=== PATIENT | male | born 1955 | race Caucasian/White ===

== ENCOUNTER → 2024-05-12 18:27 | Outpatient (REF) | payer OTHER, SELFPAY | LOC: MRI 3T 18:27 | PROVIDERS: ATTENDING PHYSICIAN Specialist; FAMILY PHYSICIAN Family Medicine | DX: N40.1 Benign prostatic hyperplasia with lower urinary tract symptoms (principal) | CPT/HCPCS: 72197; A9575 ==

== ENCOUNTER 2024-08-16 12:20 | Outpatient (RCR) | payer OTHER, SELFPAY | END 2024-08-16 23:59 | disposition home or self-care (01) | LOC: RPT 12:20 | PROVIDERS: ATTENDING PHYSICIAN Urology; FAMILY PHYSICIAN Family Medicine | DX: D07.5 Carcinoma in situ of prostate (principal); Z73.6 Limitation of activities due to disability | CPT/HCPCS: 97161; 97530 ==

== ENCOUNTER 2024-08-19 06:09 | Day surgery (SDC) | payer OTHER, SELFPAY ==
[2024-08-16 14:22] VITALS: BMI 28.2
[2024-08-16 14:56] LABS: Hematocrit 43.6 % (39.0-52.0); Hemoglobin 15.2 g/dL (13.0-18.0); Mean Corp Hgb Conc. 34.9 g/dL (33.0-37.0); Mean Corpuscular Hgb 30.1 pg (27.0-31.0); Mean Corpuscular Volume 86.3 fL (80.0-94.0); Mean Platelet Volume 9.4 fL (7.4-10.4); Platelet Count 435 10^3/uL (130-400); Red Blood Cell Count 5.05 10^6/uL (4.70-6.10); Red Cell Dist. Width 12.5 % (11.5-14.5)
[2024-08-16 15:02] LABS: Urine Albumin Negative (Neg - Trace); Urine Bilirubin Negative (Negative); Urine Character Clear (Clear); Urine Color Yellow; Urine Glucose Negative (Negative); Urine Ketone Negative (Negative); Urine Leukocyte Negative (Negative); Urine Nitrite Negative (Negative); Urine Occult Blood Negative (Negative); Urine Urobilinogen Negative (Neg - 1+)
[2024-08-16 15:10] LABS: INR 1.03; PT 13.3 Sec (11.4-14.6)
[2024-08-16 15:11] LABS: Blood Urea Nitrogen 12 mg/dl (9-20); Calcium 9.7 mg/dl (8.4-10.2); Carbon Dioxide 28 mmol/L (22-30); Chloride 99 mmol/L (98-107); Estimated Creatinine Clearance 93 ml/min; Glucose 91 mg/dl (70-99); Potassium 4.4 mmol/L (3.5-5.1); Sodium 142 mmol/L (135-145); eGFR > 60.00
[2024-08-16 15:11] LABS: APTT 28.1 Sec (23.4-35.0)
[2024-08-19] VITALS (14 sets, daily range): BP systolic 122–146; BP diastolic 59–79; BMI 28.2
[2024-08-19] MEDS: NORMOSOL-R/PLASMALYTE-A 1000 IV (07:23)
--- NOTE | 2024-08-19 12:01 | W.IMMPOSTOP ---
Surgical Immed Post Op Note
-
Primary Surgeon: Peffer
Assisting Surgeon: none
Pre-op Diagnosis: Prostate cancer
Post-op Diagnosis: same
Procedure Performed: Robotic prostatectomy, pelvic lymph node dissection
Anesthesia Type: general
Specimen / Cultures: Prostate, lymph nodes, DVs, frozen sections
Estimated Blood Loss: 20cc
Complications: none
Operative Findings: negative frozen
[2024-08-19] MEDS: TORADOL 15 MG IV ×2 (13:06→18:35)
[2024-08-19] MEDS: ZOFRAN 4 MG IV (13:06)
[2024-08-19] MEDS: NSS 1000 IV ×2 (14:20→22:25)
--- NOTE | 2024-08-19 14:47 | PTCARENOTE ---
Received patient from PACU via bed around 1420 in stable condition. Patient oriented to room. Denies pain. Pike draining juan m colored urine. Lap sites to abdomen GUTIERREZ CDI. Call carpenter in reach.
[2024-08-19] MEDS: ORETIC PO (15:09)
[2024-08-19] MEDS: SENOKOT 17.2 MG PO ×2 (15:40→20:01)
[2024-08-19 17:13] LABS: Hematocrit 41.1 % (39.0-52.0); Hemoglobin 14.4 g/dL (13.0-18.0)
[2024-08-19] MEDS: NSS IV (17:22)
[2024-08-19 17:27] LABS: Blood Urea Nitrogen 19 mg/dl (9-20); Calcium 8.9 mg/dl (8.4-10.2); Carbon Dioxide 26 mmol/L (22-30); Chloride 99 mmol/L (98-107); Estimated Creatinine Clearance 93 ml/min; Glucose 136 mg/dl (70-99); Potassium 4.4 mmol/L (3.5-5.1); Sodium 137 mmol/L (135-145); eGFR > 60.00
[2024-08-19] MEDS: CRESTOR 5 MG PO (21:33)
[2024-08-20] MEDS: TORADOL 15 MG IV ×3 (00:11→12:30)
[2024-08-20] MEDS: NSS 1000 IV (05:58)
[2024-08-20 06:27] LABS: Hematocrit 36.7 % (39.0-52.0); Hemoglobin 12.6 g/dL (13.0-18.0); Mean Corp Hgb Conc. 34.3 g/dL (33.0-37.0); Mean Corpuscular Volume 90.4 fL (80.0-94.0); Mean Platelet Volume 9.2 fL (7.4-10.4); Platelet Count 309 10^3/uL (130-400); Red Blood Cell Count 4.06 10^6/uL (4.70-6.10); Red Cell Dist. Width 12.4 % (11.5-14.5); White Blood Cell Count 10.6 10^3/uL (4.8-10.8)
[2024-08-20 06:36] LABS: Blood Urea Nitrogen 15 mg/dl (9-20); Calcium 8.2 mg/dl (8.4-10.2); Carbon Dioxide 25 mmol/L (22-30); Chloride 105 mmol/L (98-107); Estimated Creatinine Clearance 93 ml/min; Glucose 103 mg/dl (70-99); Potassium 4.2 mmol/L (3.5-5.1); Sodium 139 mmol/L (135-145); eGFR > 60.00
[2024-08-20 07:48] VITALS: BP 130/64
[2024-08-20] MEDS: NORVASC 2.5 MG PO (07:50)
[2024-08-20] MEDS: SENOKOT 17.2 MG PO (07:50)
[2024-08-20] MEDS: ORETIC 12.5 MG PO (07:51)
--- NOTE | 2024-08-20 09:59 | W.PN.URO.CBU ---
Today's Communication / Plan
-
Discharge
Assessment / Plan
-
69M POD 1 s/p robotic prostatectomy
- OOB
- Regular diet
- PO pain control
Discharge home with bah
Follow up 10 days
Diagnosis
-
Date of Service: August 20, 2024
-
Patient Diagnosis:
prostate cancer
Post Op Day:
Subjective
-
pain controlled
tolerating diet
some ambulation
Objective
-
Vital Signs
Temp Pulse Resp BP Pulse Ox
97.6 F 64 16 130/64 97
08/20/24 07:48 08/20/24 07:50 08/20/24 07:48 08/20/24 07:50 08/20/24 07:48
Intake and Output
08/19/24 08/20/24 08/21/24
06:59 06:59 06:59
Intake Total 2680 / 2680
Output Total 178 / 178
Balance 900 / 900
Intake:
Oral fluids 480 / 480
IV fluids (Total) 2200 / 2200
Normosol 200 / 200
IV piggybacks 0 / 0
Output:
Urine, Bah 1779 / 1779
Laboratory Results
08/20/24 05:29
08/20/24 05:29
Physical Exam
-
General - well developed, well nourished, no acute distress
Chest - clear bilaterally
Abdomen - soft, non-tender
Bah clear urine
Skin - warm & dry with no rash
Neuro - AOx3, no motor deficits
Incision - clean, dry
--- NOTE | 2024-08-20 10:16 | CM ---
Addendum entered by Nubia Marie RN 08/20/24 13:17:
Per RN, patient has decided against VN services. Referrals were sent out, but no agency has been found to accept the patient at this time. Nursing educated the patient on bah care and maintenance. Patient will follow-up with urology as
outpatient.
Original Note:
Reviewed the chart notes and spoke with the patient at the bedside. The patient resides with his spouse in a split level home with a total of 12 steps to enter. The patient reports no DME/VN/SNF in the past. The patient confirmed his pharmacy
choice is [facility]. CM consult for VN received. Discussed options for VN in [place]. Referral to be sent to [place] V[place]. CM continues to be available to patient/family and is monitoring medical plan for needs at discharge.
Plan: Discharge to home today. Spouse will provide transportation.
[2024-08-20 12:00] VITALS: BP 131/67
== END 2024-08-20 14:15 | disposition home or self-care (01) ==
LOC: SDS 06:09
PROVIDERS: ATTENDING PHYSICIAN Urology; FAMILY PHYSICIAN Family Medicine
DX: C61 Malignant neoplasm of prostate (principal)
CPT/HCPCS: 55866; 38571; 88305; 88307; 88309; 88332; 36415; 80048; 81003; 85014; 85018; 85027; 85610; 85730; 86850; 86900; 86901; 88331; 88344; 93005

== ENCOUNTER 2024-09-16 13:06 | Outpatient (RCR) | payer OTHER, SELFPAY | END 2024-09-16 23:59 | disposition home or self-care (01) | LOC: RPT 13:06 | PROVIDERS: ATTENDING PHYSICIAN Urology; FAMILY PHYSICIAN Family Medicine | DX: D07.5 Carcinoma in situ of prostate (principal); Z73.6 Limitation of activities due to disability | CPT/HCPCS: 97110; 97164; 97530 ==

== ENCOUNTER 2024-10-15 14:27 | Outpatient (RCR) | payer OTHER, SELFPAY | END 2024-10-15 23:59 | disposition home or self-care (01) | LOC: RPT 14:27 | PROVIDERS: ATTENDING PHYSICIAN Urology; FAMILY PHYSICIAN Family Medicine | DX: D07.5 Carcinoma in situ of prostate (principal); Z73.6 Limitation of activities due to disability | CPT/HCPCS: 97110; 97112; 97530 ==

== ENCOUNTER 2024-11-12 12:57 | Outpatient (RCR) | payer OTHER, SELFPAY | END 2024-11-12 23:59 | disposition home or self-care (01) | LOC: RPT 12:57 | PROVIDERS: ATTENDING PHYSICIAN Urology; FAMILY PHYSICIAN Family Medicine | DX: D07.5 Carcinoma in situ of prostate (principal); Z73.6 Limitation of activities due to disability | CPT/HCPCS: 97110; 97112; 97530 ==

== ENCOUNTER → 2024-11-22 16:18 | Outpatient (REF) | payer OTHER, SELFPAY ==
[2024-11-22 17:34] LABS: PSA, Total - Diagnostic 3.08 ng/ml (0.0-4.0)
== END ==
LOC: REG 16:18
PROVIDERS: ATTENDING PHYSICIAN Urology
DX: C61 Malignant neoplasm of prostate (principal)
CPT/HCPCS: 36415; 84153

== ENCOUNTER 2024-12-13 06:33 | Day surgery (SDC) | payer OTHER, SELFPAY | END 2024-12-13 09:06 | disposition home or self-care (01) | LOC: GI 06:33 | PROVIDERS: ATTENDING PHYSICIAN Internal Medicine Gastroenterology | DX: Z12.11 Encounter for screening for malignant neoplasm of colon (principal); K57.30 Diverticulosis of large intestine without perforation or abscess without bleeding; K64.8 Other hemorrhoids; D12.2 Benign neoplasm of ascending colon; K62.89 Other specified diseases of anus and rectum; Z86.0100 Personal history of colon polyps, unspecified | CPT/HCPCS: 45380; 88305 ==

== ENCOUNTER 2024-12-17 14:06 | Outpatient (RCR) | payer OTHER, SELFPAY | END 2024-12-17 23:59 | disposition home or self-care (01) | LOC: RPT 14:06 | PROVIDERS: ATTENDING PHYSICIAN Urology; FAMILY PHYSICIAN Family Medicine | DX: D07.5 Carcinoma in situ of prostate (principal); Z73.6 Limitation of activities due to disability | CPT/HCPCS: 97110; 97112; 97530 ==

== ENCOUNTER 2025-01-06 13:59 | Outpatient (RCR) | payer OTHER, SELFPAY | END 2025-01-06 23:59 | disposition home or self-care (01) | LOC: RPT 13:59 | PROVIDERS: ATTENDING PHYSICIAN Urology; FAMILY PHYSICIAN Family Medicine | DX: D07.5 Carcinoma in situ of prostate (principal); Z73.6 Limitation of activities due to disability | CPT/HCPCS: 97112; 97140; 97530 ==